=== PATIENT | female | born 1940 | race Caucasian/White ===

== ENCOUNTER 2017-08-20 02:01 | Emergency (ER) | payer OTHER, MEDICARE ==
[~2017-08-20] VITALS: Ht 154.9 cm; Wt 69.4 kg
[~2017-08-20 02:01] MED LIST: ARMOUR THYROID60 MG PO; COZAAR 25MG TAB25 MG PO; HYDRODIURIL 112.5 M1 PO; LOPRESSOR 25MG25 MG PO
[2017-08-20 02:44] LABS: ABSOLUTE BASOPHIL COUNT 0 /CUMM (0.0-0.2); ABSOLUTE EOSINOPHIL COUNT 0.1 /CUMM (0.0-0.7); ABSOLUTE GRANULOCYTE CT 6.6 /CUMM (1.4-6.5); ABSOLUTE LYMPH COUNT 1.8 /CUMM (1.2-3.4); ABSOLUTE MONOCYTE COUNT 0.7 /CUMM (0.10-0.60); BASOPHIL % 0.4 % (0.0-2.0); EOSINOPHIL % 1.4 % (0-5); GRANULOCYTE % 71.4 % (42.2-75.2); HEMATOCRIT 37.6 % (37-47); MEAN CORPUSCULAR HGB 30.3 PG (27.0-31.0); MEAN CORPUSCULAR HGB CONC 34.3 G/DL (33.0-37.0); MEAN CORPUSCULAR VOLUME 88.4 FL (81.0-99.0); MEAN PLATELET VOLUME 6.7 FL (7.4-10.4); PLATELET COUNT 299 /CUMM (130-400); RED BLOOD CELL CT 4.26 /CUMM (4.20-5.40); WHITE BLOOD CELL COUNT 9.3 /CUMM (4.8-10.8)
--- NOTE | 2017-08-20 04:19 | ED GI/GU/ABDOMINAL COMPLAINT ---
History of Present Illness General Chief Complaint: General Adult Stated Complaint: "WELL I HAVE PAIN ON MY RIGHT BACK SIDE" Source: patient Exam Limitations: no limitations Vital Signs & Intake/Output Vital Signs & Intake/Output Vital Signs Date Time Temp Pulse Resp B/P B/P Pulse O2 O2 Flow FiO2 Mean Ox Delivery Rate 08/20 620 99.1 68 16 179/76 94 Room Air 08/20 0513 99.3 78 22 190/87 97 Room Air 08/20 0227 220/100 08/20 0216 98.6 81 18 217/93 97 Room Air Allergies Coded Allergies: Sulfa (Sulfonamide Antibiotics) (Intermediate, BRIGHT RED ITCHY RASH ON CHEST AND NECK 08/20/17) Reconcile Medications Lisinopril 20 MG TABLET 20 MG PO DAILY HTN (Reported) Losartan (Cozaar) 25 MG TAB 1 TAB PO DAILY high blood pressure Metoprolol Tartrate (Lopressor) 25 MG TAB 1 TAB PO BID high blood pressure THYROID,PORK ([place] Thyroid) 60 MG TAB 1 TAB PO DAILY THYROID (Reported) Triage Note: TRIAGE: PATIENT TO ER FROM HOME REPORTING SHARP PAIN TO R BACK, DENIES ANY CP. HS HTN, CURRENT MANUAL BP: 220/110. PATIENT REPORTS CONSTIPATED, THOUGH DENIES ABD PAIN. ALSO REPORTS "TROUBLE VOIDING." DENIES SOB, NO ACUTE RESP DISTRESS NOTED. Triage Nurses Notes Reviewed? yes ? N Is pt currently ? No HPI: Patient presents for evaluation of a severe constant right back pain that began abruptly yesterday. Patient cannot recall exactly what she was doing at the time. She denies trauma however. The pain is a constant pain but not sharp. The pain does not change with movement and seemed to feel better with the massage provided by her earlier today. She denies dysuria or hematuria. She denies any prior episodes of this kind of pain. Past History Travel History Traveled to [place] past 21 day No Medical History Any Pertinent Medical History? see below for history Neurological: NONE EENT: NONE Cardiovascular: hypertension Respiratory: NONE Gastrointestinal: NONE Hepatic: NONE Renal: NONE Musculoskeletal: NONE Psychiatric: NONE Endocrine: hypothyroidism Blood Disorders: NONE Cancer(s): NONE BREAST TRIMMER/Reproductive: NONE History of MRSA: No History of VRE: No History of CDIFF: No Surgical History Surgical History: non-contributory Psychosocial History What is your primary language Slovak Tobacco Use: Refused to answer Family History Hx Contributory? No Review of Systems Review of Systems Constitutional: Reports: no symptoms. EENTM: Reports: no symptoms. Respiratory: Reports: no symptoms. Cardiovascular: Reports: no symptoms. GI: Reports: no symptoms. Genitourinary: Reports: no symptoms. Musculoskeletal: Reports: see HPI. Skin: Reports: no symptoms. Neurological/Psychological: Reports: no symptoms. Hematologic/Endocrine: Reports: no symptoms. Immunologic/Allergic: Reports: no symptoms. All Other Systems: Reviewed and Negative Physical Exam Physical Exam Gastrointestinal: see below Comments: Gen.: Well-nourished, well-developed, no acute respiratory distress. Head: Normocephalic, atraumatic. Eyes: Normal inspection bilaterally Ears: Normal inspection bilaterally Nose: Normal inspection Throat/mouth : Moist mucosa Neck: Supple, full range of motion, no goiter Heart: Regular rate and rhythm, no murmurs rubs or gallops Lungs: Clear to auscultation bilaterally with normal air entry Chest: Nontender Back: Normal range of motion, tenderness over the right flank Abdomen: Soft, nontender, nondistended, normal bowel sounds Extremities: Normal range of motion grossly, equal radial pulses, no cyanosis clubbing or edema Neurologic: Cranial nerves grossly intact, speech is clear Skin: warm and dry, no rashes noted in the area of pain Psychiatric: Calm, cooperative, no apparent delusions or hallucinations Core Measures ACS in differential dx? No Sepsis Present: No Sepsis Focused Exam Completed? No Progress Differential Diagnosis: biliary colic, bowel obstruction, cholecystitis, gastritis, kidney stone, peptic ulcer, PUD/GERD Plan of Care: Orders Procedure Date/time Status Add-on Test (ER Only) 08/20 0546 Active LIPASE 08/20 0231 Complete D-DIMER 08/20 0227 Complete TROPONIN LEVEL 08/20 225 Complete MAGNESIUM 08/20 022 Complete COMPREHENSIVE METABOLIC PANEL 08/20 022 Complete CBC WITHOUT DIFFERENTIAL 08/20 225 Complete EKG 08/20 225 Active URINALYSIS 08/20 0214 Complete Current Medications Sig/Ruthann Start time Last Medication Dose Stop Time Status Admin Ondansetron HCl 4 MG ONCE ONE 08/20 0515 CAN (Zofran) 08/20 0516 Ketorolac 0 .STK-MED ONE 08/20 0505 CAN Tromethamine (Toradol) Ketorolac 30 MG ONCE ONE 01/02 0430 CAN Tromethamine 08/20 430 (Toradol) Laboratory Tests 08/20/171: Anion Gap 10, Estimated GFR > 60, BUN/Creatinine Ratio 16.7, Glucose 120 H, Calcium 10.6 H, Magnesium 2.0, Total Bilirubin 1.0, AST 19, ALT 32, Alkaline Phosphatase 92, Troponin I < 0.01, Total Protein 6.9, Albumin 4.0, Globulin 2.9, Albumin/Globulin Ratio 1.4, Lipase 159, D-Dimer High Sensitivty 432 H, CBC w Diff NO MAN DIFF REQ, RBC 4.26, MCV 88.4, MCH 30.3, RDW 13.0, MPV 6.7 L, Gran % 71.4, Lymphocytes % 19.5 L, Monocytes % 7.3, Eosinophils % 1.4, Basophils % 0.4 , Absolute Granulocytes 6.6 H, Absolute Lymphocytes 1.8, Absolute Monocytes 0.7 H, Absolute Eosinophils 0.1, Absolute Basophils 0, PUBS MCHC 34.3, Urinalysis LIGHT H, Urine Color YEL, Urine Clarity HAZY H, Urine pH 5.5, Ur Specific [place] 1.025, Urine Protein TRACE H, Urine Ketones TRACE H, Urine Nitrite NEG , Urine Bilirubin NEG, Urine Urobilinogen 0.2, Ur Leukocyte Esterase NEG, Ur Microscopic SEDIMENT EXAMINED, Urine RBC 1-3, Urine WBC 3-5 H, Ur Epithelial Cells FEW, Urine Crystals 1+ UR AC H, Urine Bacteria RARE H, Urine Mucus FEW, Urine Hemoglobin NEG, Urine Glucose NEG Diagnostic Imaging: Discussed w/RAD: CT Scan. Radiology Impression: PATIENT: ROSIE TAYLOR PRESENT AGE: 76 PATIENT ACCOUNT NO: [id number] : 40 LOCATION: [facility] ORDERING PHYSICIAN: Guy Webber MD SERVICE DATE: 08/20/17 EXAM TYPE : CAT - CT ABD & PELVIS W/O IV CONTRAS EXAMINATION: CT ABDOMEN AND PELVIS WITHOUT CONTRAST CLINICAL INFORMATION: Right flank pain. COMPARISON: CT abdomen and pelvis dated 05/14/2015 TECHNIQUE: Multidetector volumetric imaging was performed from the superior aspect of the liver through the pubic symphysis. Sagittal and coronal reformatted images were obtained on the technologist's workstation. DLP: 288 mGy-cm FINDINGS: LUNG BASES: The visualized lung bases are unremarkable. Coronary artery calcifications are noted. LIVER, GALLBLADDER, AND BILIARY TREE: The liver is normal in size, shape, and attenuation. No focal hepatic lesion or biliary ductal dilatation is present. The gallbladder is unremarkable with no evidence of radiopaque gallstones, gallbladder wall thickening, or obvious pericholecystic inflammatory changes. PANCREAS: There is some fullness in the head/uncinate process of the pancreas with surrounding peripancreatic inflammatory fat stranding. No dilation of the main pancreatic duct. No pancreatic atrophy. SPLEEN: Unremarkable. ADRENAL GLANDS: Unremarkable. KIDNEYS AND URETERS: The kidneys are normal in size, shape, and attenuation. No hydronephrosis, hydroureter, or calculi seen. No perinephric stranding. BLADDER: Unremarkable. GASTROINTESTINAL TRACT: The small and large bowel are unremarkable. The appendix is definitively seen but there is no focal right lower quadrant inflammatory stranding. ABDOMINAL WALL: No significant hernia is appreciated. LYMPH NODES: Normal. VASCULAR: Scattered atherosclerotic vascular calcifications are noted without aortic aneurysm. PELVIC VISCERA: Unremarkable. OSSEOUS STRUCTURES: Unremarkable. IMPRESSION: Fullness in the head/uncinate process of the pancreas with surrounding peripancreatic inflammatory fat stranding most consistent with acute focal pancreatitis. DICTATED BY: Demond Smith MD DATE/TIME DICTATED:08/20/17453 INVESTMENT DIRECTOR:DERIC DATE/ TIME TRANSCRIBED:08/20/17453 CONFIDENTIAL, DO NOT COPY WITHOUT APPROPRIATE AUTHORIZATION. <Electronically signed in Other Vendor System> SIGNED BY: Demond Smith MD 08/20/17 0503 Initial ED EKG: NSR, rate (81) Prior EKG: unchanged Comments: 08/20/2017 6:41:55 AM I updated Donnie on test results previously and it just updated her on her lipase results. He is feeling considerably more comfortable, good enough to return home. She denies alcohol use or hypertriglyceridemia. The cause of her focal pancreatitis is unclear at this point. Departure Departure Disposition: HOME OR SELF CARE Condition: Stable Clinical Impression Primary Impression: Pancreatitis Qualifiers: Chronicity: acute Pancreatitis type: unspecified pancreatitis type Acute pancreatitis complication: no infection or necrosis Qualified Code: K85.90 - Acute pancreatitis without necrosis or infection, unspecified Referrals: Andreia Ley DO (PCP/Family) Additional Instructions: Zofran as needed for nausea or vomiting. Vicodin as needed for pain. Follow-up with Andreia Ley DO within the next 24 hours for reevaluation. Return if any concerns or sudden worsening. Please note that there might be incidental findings in your evaluation that are unrelated to the current emergency department visit. Please notify your primary care doctor about this emergency department visit in order to obtain and review all of the testing performed so that these incidental findings can be monitored as needed. If you had an x-ray performed, please understand that some fractures may not be seen on the initial set of x-rays. If your symptoms persist you might need a repeat set of x-rays to check for such a fracture. If you had a laceration evaluated, please understand that foreign bodies such as glass or wood may not be visible to the naked eye or on plain x-rays. If the wound becomes red, swollen, increasingly more painful or if there is any drainage from the wound, please have it reevaluated by a physician for the possibility of a retained foreign body. If you're unable to follow up as outlined in the discharge instructions please return to the emergency department. Thank you for choosing the [facility] Emergency Department for your care. It was a pleasure to serve you today. Guy Webber M.D. [facility] Departure Forms: Customer Survey General Discharge Information Prescriptions: Current Visit Scripts Ondansetron (Zofran Odt) 1 TAB SL TID #10 TAB Hydrocodone/Acetaminophen ([place] 5-325 Tablet) 1-2 TAB PO Q6P PRN PAIN #20 TAB
--- NOTE | 2017-08-20 05:03 | CT SCAN REPORT ---
EXAMINATION: CT ABDOMEN AND PELVIS WITHOUT CONTRAST CLINICAL INFORMATION: Right flank pain. COMPARISON: CT abdomen and pelvis dated 05/14/2015 TECHNIQUE: Multidetector volumetric imaging was performed from the superior aspect of the liver through the pubic symphysis. Sagittal and coronal reformatted images were obtained on the technologist's workstation. DLP: 288 mGy-cm FINDINGS: LUNG BASES: The visualized lung bases are unremarkable. Coronary artery calcifications are noted. LIVER, GALLBLADDER, AND BILIARY TREE: The liver is normal in size, shape, and attenuation. No focal hepatic lesion or biliary ductal dilatation is present. The gallbladder is unremarkable with no evidence of radiopaque gallstones, gallbladder wall thickening, or obvious pericholecystic inflammatory changes. PANCREAS: There is some fullness in the head/uncinate process of the pancreas with surrounding peripancreatic inflammatory fat stranding. No dilation of the main pancreatic duct. No pancreatic atrophy. SPLEEN: Unremarkable. ADRENAL GLANDS: Unremarkable. KIDNEYS AND URETERS: The kidneys are normal in size, shape, and attenuation. No hydronephrosis, hydroureter, or calculi seen. No perinephric stranding. BLADDER: Unremarkable. GASTROINTESTINAL TRACT: The small and large bowel are unremarkable. The appendix is definitively seen but there is no focal right lower quadrant inflammatory stranding. ABDOMINAL WALL: No significant hernia is appreciated. LYMPH NODES: Normal. VASCULAR: Scattered atherosclerotic vascular calcifications are noted without aortic aneurysm. PELVIC VISCERA: Unremarkable. OSSEOUS STRUCTURES: Unremarkable. IMPRESSION: Fullness in the head/uncinate process of the pancreas with surrounding peripancreatic inflammatory fat stranding most consistent with acute focal pancreatitis.
[2017-08-20 06:21] VITALS: BP 179/76
[2017-08-20] MEDS ORDERED: LISINOPRIL20 M1 PO (06:23)
[2017-08-20] MEDS ORDERED: ZOFRAN ODT4 M1 SL (06:44)
[2017-08-20] MEDS ORDERED: NORCO 5-325 TA1 EACH PO (06:44)
== END 2017-08-20 07:00 ==
LOC: ERH 02:01
PROVIDERS: Emergency Medicine
DX: K85.90 Acute pancreatitis without necrosis or infection, unspecified (principal)
CPT/HCPCS: 74176; 81001; 93005; 93010; 96372; 96374; 96375; J1885; J2405; J3101